=== PATIENT | male | born 1970 | race Caucasian/White ===

== ENCOUNTER 2024-03-27 12:54 | Outpatient (CLI) | payer BC ==
[2024-03-27 13:09] LABS: BASOPHILS % (AUTO) 0.3 %; EOSINOPHILS % (AUTO) 0.2 %; HCT - HEMATOCRIT 41.8 % (42.0-52.0); HGB - HEMOGLOBIN 13.9 g/dL (14.0-18.0); LYMPHOCYTES # (AUTO) 1.4 10^3/uL (1.5-3.5); LYMPHOCYTES % (AUTO) 15.1 %; MEAN CORPUSCULAR HEMOGLOBIN 29.3 pg (27.0-31.0); MEAN CORPUSCULAR HGB CONC 33.3 g/dL (32.0-36.0); MEAN CORPUSCULAR VOLUME 88.2 fL (80.0-94.0); MEAN PLATELET VOLUME 8.7 fL (7.4-11.4); MONOCYTES # (AUTO) 0.6 10^3/uL (0.0-1.0); MONOCYTES % (AUTO) 6.9 %; NEUTROPHILS # (AUTO) 7.2 10^3/uL (1.5-6.6); NEUTROPHILS % (AUTO) 77.4 %; PLT - PLATELET COUNT 374 10^3/uL (130-450); RED BLOOD COUNT 4.74 10^6/uL (4.70-6.10); RED CELL DISTRIBUTION WIDTH 11.9 % (12.0-15.0); WHITE BLOOD COUNT 9.3 x10^3/uL (4.8-10.8)
[2024-03-27 13:31] LABS: AMPHETAMINE SCREEN,URINE POSITIVE (NEGATIVE); BARBITURATE SCREEN,UR NEGATIVE (NEGATIVE); BENZODIAZEPINES SCREEN, URINE NEGATIVE (NEGATIVE); BUPRENORPHINE SCREEN, URINE NEGATIVE (NEGATIVE); COCAINE SCREEN URINE NEGATIVE (NEGATIVE); METHADONE SCREEN, URINE NEGATIVE (NEGATIVE); METHAMPHETAMINES SCREEN, URINE POSITIVE (NEGATIVE); OPIATE SCREEN, URINE NEGATIVE (NEGATIVE); OXYCODONE SCREEN, URINE NEGATIVE (NEGATIVE); THC CANNABINOID SCREEN, URINE NEGATIVE (NEGATIVE); TRICYCLIC ANTIDEPRESSANT,URINE NEGATIVE (NEGATIVE)
[2024-03-27 13:42] LABS: CHOL/HDL RATIO 3.2 (<5.0); CHOLESTEROL 124 mg/dL; HDL CHOLESTEROL 39 mg/dL; LDL CHOLESTEROL,CALCULATED 64 mg/dL; LDL/HDL RATIO 1.6 (<3.6); TRIGLYCERIDES 106 mg/dL (48-352); VLDL CHOLESTEROL 21 mg/dL
[2024-03-27 13:44] LABS: THYROID STIMULATING HORMONE 0.96 uIU/mL (0.34-5.60)
== END 2024-03-27 12:55 | disposition home or self-care (01) ==
LOC: LAB 12:54
PROVIDERS: ATTEND Emergency Medicine
DX: F15.10 Other stimulant abuse, uncomplicated (principal)
CPT/HCPCS: 36415; 80061; 80306; 81599; 83036; 83721; 84436; 84443; 84480; 85025

== ENCOUNTER 2024-04-18 08:00 | Outpatient (CLI) | payer BC | END 2024-04-18 23:59 | disposition home or self-care (01) | LOC: LAB 08:00 | PROVIDERS: ATTEND Physician Assistant | DX: R31.9 Hematuria, unspecified (principal) | CPT/HCPCS: 87086; 87181 ==

== ENCOUNTER 2024-04-18 11:02 | Outpatient (CLI) | payer BC ==
[2024-04-18 11:32] LABS: CALCIUM 9.6 mg/dL (8.5-10.3); CREATININE 0.6 mg/dL (0.6-1.3); POTASSIUM 4.2 mmol/L (3.5-4.5)
== END 2024-04-18 11:03 | disposition home or self-care (01) ==
LOC: LAB 11:02
PROVIDERS: ATTEND Physician Assistant
DX: R31.9 Hematuria, unspecified (principal)
CPT/HCPCS: 36415; 80048

== ENCOUNTER 2024-04-28 10:32 | Outpatient (CLI) | payer BC ==
[2024-04-28 10:40] LABS: BASOPHILS # (AUTO) 0.1 10^3/uL (0.0-0.1); BASOPHILS % (AUTO) 0.7 %; EOSINOPHILS # (AUTO) 0.3 10^3/uL (0.0-0.7); EOSINOPHILS % (AUTO) 3.5 %; HCT - HEMATOCRIT 38.8 % (42.0-52.0); HGB - HEMOGLOBIN 12.2 g/dL (14.0-18.0); LYMPHOCYTES % (AUTO) 21.1 %; MEAN CORPUSCULAR HEMOGLOBIN 29.4 pg (27.0-31.0); MEAN CORPUSCULAR HGB CONC 31.4 g/dL (32.0-36.0); MEAN CORPUSCULAR VOLUME 93.5 fL (80.0-94.0); MEAN PLATELET VOLUME 8.2 fL (7.4-11.4); MONOCYTES # (AUTO) 0.7 10^3/uL (0.0-1.0); MONOCYTES % (AUTO) 7.4 %; NEUTROPHILS # (AUTO) 6.3 10^3/uL (1.5-6.6); NEUTROPHILS % (AUTO) 65.7 %; PLT - PLATELET COUNT 443 10^3/uL (130-450); RED BLOOD COUNT 4.15 10^6/uL (4.70-6.10); RED CELL DISTRIBUTION WIDTH 13.1 % (12.0-15.0); WHITE BLOOD COUNT 9.6 x10^3/uL (4.8-10.8)
== END 2024-04-28 10:33 | disposition home or self-care (01) ==
LOC: LAB 10:32
PROVIDERS: ATTEND Nurse Practitioner Family
DX: D64.9 Anemia, unspecified (principal)
CPT/HCPCS: 36415; 85025

== ENCOUNTER 2024-05-16 16:09 | Outpatient (CLI) | payer BC ==
--- NOTE | 2024-05-16 21:16 | XRAY Report ---
PROCEDURE: Lumbar Spine 2-3V INDICATIONS: BACK PAIN TECHNIQUE: 2 views of the lumbar spine were acquired. COMPARISON: None. FINDINGS: Surgical change: None. Bones: 5 [id number] vertebrae are present. Sacralization of L5. Anterolisthesis of L3 on L4 marybeth suring 1 cm. Lower lumbar spine facet joint hypertrophy. Small vertebral body osteophytes. No vertebr al body compression fractures. No suspicious bony lesions. Soft tissues: Overlying bowel gas pattern is normal. No suspicious soft tissue calcifications. IMPRESSION: Sacralization of L5. Anterolisthesis of L3 on L4 grade 1 measuring 1 cm. [id number]-[id number] degenerative changes. Reviewed by: Todd Layton MD on 05/16/2024 9:14 PM PDT Approved by: Todd Layton MD on 05/16/2024 9:14 PM PDT Station ID: [id number]
== END 2024-05-16 16:10 | disposition home or self-care (01) ==
LOC: DI 16:09
PROVIDERS: ATTEND Nurse Practitioner Family
DX: M47.816 Spondylosis without myelopathy or radiculopathy, lumbar region (principal); M43.16 Spondylolisthesis, lumbar region; Q76.49 Other congenital malformations of spine, not associated with scoliosis

== ENCOUNTER 2024-05-29 10:55 | Outpatient (CLI) | payer BC ==
--- NOTE | 2024-05-29 18:16 | Ultrasound Report ---
PROCEDURE: Abdomen Limited INDICATIONS: FLANK AND HIP MASS TECHNIQUE: Real-time focused scanning was performed of the posterior back and hip with image documentation. COMPARISONS: None. FINDINGS: Multiple sonographic images of the left back and hip demonstrate masses within the subcutaneous fat w hich are relatively circumscribed. They demonstrate mild appearance of increased echogenicity without increased vascularity. The largest in the lowest aspect of the back measures 4.2 x 1.6 x 6.1 cm. IMPRESSION: Multiple masses most suggestive of lipoma. Reviewed by: Bhavana Bates MD on 05/29/2024 6:15 PM PDT Approved by: Bhavana Bates MD on 05/29/2024 6:15 PM PDT Station ID: [id number]
== END 2024-05-29 10:56 | disposition home or self-care (01) ==
LOC: DI 10:55
PROVIDERS: ATTEND Nurse Practitioner Family
DX: R22.2 Localized swelling, mass and lump, trunk (principal)

== ENCOUNTER 2024-06-12 10:15 | Outpatient (CLI) | payer BC ==
--- NOTE | 2024-06-12 16:25 | MRI Report ---
PROCEDURE: Lumbar Spine WO INDICATIONS: LUMBAR BACK PAIN TECHNIQUE: Noncontrast sagittal T1 spin echo and T2 fast echo, sagittal STIR, axial T1 and T2 fast spin echo thr ough the lumbar spine. In cases with scoliosis, additional coronal T2 fast spin echo may be performe d. COMPARISON: None. FINDINGS: Image quality: Excellent. Alignment and Curvature: Grade 1 anterolisthesis of L3 on L4. Sacralization of L5. Bone Marrow: Marrow is of normal overall signal. No acute vertebral body compression fractures. Spinal Cord: Conus medullaris terminates at the L1 level. Visualized cord demonstrates normal signa l and size. Paraspinous Soft Tissues: No paravertebral masses. T12-L1: Disc desiccation. L1-L2: Disc desiccation, broad-based disc bulge. Small facet effusions. L2-L3: Small facet effusions. L3-L4: Asymmetric posterior disc bulge. Small facet effusions, facet hypertrophy, ligamentum flavum hypertrophy. Mild to moderate right and left neural foraminal narrowing. L4-L5: Broad-based disc bulge, facet effusions, mild facet hypertrophy. Annular fissure. Mild narro wing of the left-sided lateral recess. Mild bilateral neural foraminal narrowing. L5-S1: Normal in appearance. IMPRESSION: Sacralization of L5. Multilevel degenerative disease and facet arthrosis. Of note: No significant spinal canal narrowing. Mild narrowing of the left lateral recess at L4-5. Annular fissure at L4-5. Mild to moderate bilateral neural foraminal narrowing at L3-4 and mild bilateral neural foraminal cris rowing at L4-5. Reviewed by: Chico Nicholson MD on 06/12/2024 4:23 PM PDT Approved by: Chico Nicholson MD on 06/12/2024 4:23 PM PDT Station ID: [id number]
== END 2024-06-12 10:16 | disposition home or self-care (01) ==
LOC: DI 10:15
PROVIDERS: ATTEND Nurse Practitioner Family
DX: M51.36 Other intervertebral disc degeneration, lumbar region (principal); M48.061 Spinal stenosis, lumbar region without neurogenic claudication; M47.816 Spondylosis without myelopathy or radiculopathy, lumbar region; M51.35 Other intervertebral disc degeneration, thoracolumbar region

== ENCOUNTER 2024-07-08 22:08 | Outpatient (CLI) | payer BC | END 2024-07-08 22:09 | disposition EMS.NT | LOC: EMS 22:08 | DX: E10.649 Type 1 diabetes mellitus with hypoglycemia without coma (principal) ==

== ENCOUNTER 2024-07-10 13:54 | Outpatient (CLI) | payer BC ==
[2024-07-10 23:06] LABS: ESTIMATED AVERAGE GLUCOSE 217 mg/dL (70-100); HEMOGLOBIN A1c% 9.2 % (4.27-6.07)
== END 2024-07-10 13:55 | disposition home or self-care (01) ==
LOC: LAB 13:54
PROVIDERS: ATTEND Nurse Practitioner Family
DX: E11.42 Type 2 diabetes mellitus with diabetic polyneuropathy (principal)
CPT/HCPCS: 36415; 83036

== ENCOUNTER 2024-07-30 14:56 | Outpatient (CLI) | payer BC ==
[2024-07-30 20:56] LABS: ESTIMATED AVERAGE GLUCOSE 214 mg/dL (70-100); HEMOGLOBIN A1c% 9.1 % (4.27-6.07)
== END 2024-07-30 14:57 | disposition home or self-care (01) ==
LOC: LAB 14:56
PROVIDERS: ATTEND Nurse Practitioner Family
DX: E11.9 Type 2 diabetes mellitus without complications (principal)
CPT/HCPCS: 36415; 83036